=== PATIENT | female | born 2000 | race Caucasian/White ===

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

== ENCOUNTER 2019-02-08 11:44 | Emergency (ER) | payer MEDICAID ==
[~2019-02-08] VITALS: Ht 157.5 cm; Wt 86.4 kg
[2019-02-08 12:11] VITALS: BP 131/71; Ht 157.5 cm; Wt 86.4 kg
== END 2019-02-08 12:43 | disposition home or self-care (01) ==
LOC: D.ER 11:44
DX: Z01.89 Encounter for other specified special examinations (principal)

== ENCOUNTER 2019-07-19 09:09 | Emergency (ER) | payer SELFPAY ==
[~2019-07-19] VITALS: Ht 157.5 cm; Wt 92.7 kg
[2019-07-19 09:20] VITALS: Ht 157.5 cm; Wt 92.7 kg
[2019-07-19] MEDS ORDERED: MUCINEX DM ER1 EAC1 PO (10:06)
[2019-07-19 10:14] VITALS: BP 130/74
== END 2019-07-19 10:15 | disposition home or self-care (01) ==
LOC: D.ER 09:09
DX: B34.9 Viral infection, unspecified (principal)

== ENCOUNTER 2019-11-18 12:05 | Emergency (ER) | payer OTHER ==
[~2019-11-18] VITALS: Ht 157.5 cm; Wt 91.4 kg
[~2019-11-18 12:05] MED LIST: MUCINEX DM ER1 EAC1 PO
[2019-11-18 12:17] VITALS: Ht 157.5 cm; Wt 91.4 kg
[2019-11-18 13:04] LABS: BASOPHILS 0.5 % (0-2); EOSINOPHILS 1.1 % (0-7); HEMATOCRIT 30.1 % (36.0-48.0); IMMATURE GRANULOCYTES 0.3 % (0-5); LYMPHOCYTES 34.8 % (15-50); MCHC 33.2 g/dL (31.0-37.0); MCV 90.4 fL (80.0-100.0); MONOCYTES 8.1 % (2-11); NEUTROPHILS 55.2 % (40-80); PLATELET COUNT 234 10x3/uL (130-400); RBC 3.33 10x6/uL (4.00-5.40); RDW 12.9 % (11.5-14.5); WBC 6.4 10x3/uL (4.8-10.8)
[2019-11-18 13:11] LABS: CALC OSMOLALITY 282 mosm/kg (275-300); CALCIUM 9.2 mg/dL (8.5-10.1); CARBON DIOXIDE 27.4 mmol/L (21.0-32.0); CHLORIDE - SERUM 108 mmol/L (98-107); CREATININE - SERUM 0.9 mg/dL (0.6-1.3); GLUCOSE 99 mg/dL (74-106); POTASSIUM - SERUM 3.7 mmol/L (3.5-5.1); SODIUM 143 mmol/L (136-145); UREA NITROGEN 6 mg/dL (7-18); eGFR NON AFRICAN AMERICAN 85 mL/min (90-120)
[2019-11-18 13:18] LABS: ALBUMIN 3.8 g/dL (3.4-5.0); ALKALINE PHOSPHATASE 64 U/L (30-120); ALT (SGPT) 43 U/L (10-68); BILIRUBIN - TOTAL 0.26 mg/dL (0.2-1.3); PROTEIN - SERUM 6.7 g/dL (6.4-8.2)
[2019-11-18] MEDS ORDERED: SUMATRIPTAN SUC25 MG PO (17:01)
[2019-11-18 17:12] VITALS: BP 110/64
== END 2019-11-18 17:13 | disposition home or self-care (01) ==
LOC: D.ER 12:05
PROVIDERS: Emergency Medicine
DX: R51 Headache (principal); D64.89 Other specified anemias; O03.9 Complete or unspecified spontaneous abortion without complication